=== PATIENT | male | born 1980 | race Caucasian/White ===

== ENCOUNTER 2016-12-08 09:41 | Emergency (ER) | payer MEDICAID ==
[~2016-12-08] VITALS: Ht 182.9 cm; Wt 82.9 kg
[2016-12-08 09:46] VITALS: Ht 182.9 cm; Wt 82.9 kg
[2016-12-08] MEDS ORDERED: ONDANSETRON 4 MG INJ IV STA (10:27)
[2016-12-08] MEDS ORDERED: SOD CHLORIDE 0.9% 1,000 ML IV STA (10:27)
[2016-12-08] MEDS ORDERED: morphine 2 MG INJ IV STA (10:27)
[2016-12-08] MEDS ORDERED: ASPIRIN 81 MG TAB PO ONE (10:30)
[2016-12-08 10:47] LABS: ADD SCAN DIFF NO
[2016-12-08] MEDS ORDERED: METF-382 PO (10:48)
[2016-12-08] MEDS ORDERED: LISI10TA2 PO (10:48)
[2016-12-08] MEDS ORDERED: OMEP20CA16 PO (10:49)
[2016-12-08 10:50] LABS: BASOPHILS % 0.4 % (0.0-2.0); EOSINOPHILS # 0.1 10^3/ul (0.0-0.5); EOSINOPHILS % 0.8 % (0.0-7.0); HEMATOCRIT 43.6 % (42.0-52.0); HEMOGLOBIN 14.8 g/dl (14.0-18.0); LYMPHOCYTES # 2.3 10^3/ul (0.8-2.9); LYMPHOCYTES % 24.5 % (15.0-51.0); MEAN CORPUSCULAR HEMOGLOBIN 28.7 pg (29.0-33.0); MEAN CORPUSCULAR HGB CONC 33.9 g/dl (32.0-37.0); MEAN CORPUSCULAR VOLUME 84.5 fl (82.0-101.0); MONOCYTE # 0.6 10^3/ul (0.3-0.9); NEUTROPHIL # 6.3 10^3/ul (1.6-7.5); NEUTROPHILS % 67.5 % (39.0-77.0); PLATELET COUNT 174 10^3/UL (140-415); RED BLOOD COUNT 5.16 10^6/ul (4.70-6.10); RED CELL DISTRIBUTION WIDTH 11.9 % (11.5-14.5); WHITE BLOOD COUNT 9.3 10^3/ul (4.8-10.8)
--- NOTE | 2016-12-08 10:50 | RADRPT ---
PROCEDURE: Chest x-ray CLINICAL INDICATION: Abdominal pain TECHNIQUE: Chest single view COMPARISON: None FINDINGS: The heart is normal in size. The pulmonary vessels are normal in caliber. The lungs are clear. Th e costophrenic angles are sharp. The visualized bony thorax is unremarkable. IMPRESSION: No acute cardiopulmonary disease. RPTAT: HH .Jasiel Tellez MD, Date Time Electronically viewed and signed by .Jasiel Tellez MD, MD on 12/08/2016 10:50 .W/
[2016-12-08 11:14] LABS: INR 0.94; PROTIME 12.6 Sec (12.2-14.2)
[2016-12-08 11:15] LABS: PARTIAL THROMBOPLASTIN TIME 26.4 Sec (25.0-35.0)
[2016-12-08 11:20] LABS: ALBUMIN 4.2 g/dl (3.3-4.9)
[2016-12-08 11:21] LABS: POTASSIUM 3.9 mmol/L (3.5-5.1)
[2016-12-08 11:23] LABS: CREATININE 0.95 mg/dl (0.61-1.24)
[2016-12-08 11:24] LABS: ALBUMIN/GLOBULIN RATIO 1.4; BILIRUBIN,INDIRECT 0.5 mg/dl (0-1.1); BILIRUBIN,TOTAL 0.5 mg/dl (0.2-1.3); CALCIUM 9.7 mg/dl (8.4-10.2); TOTAL PROTEIN 7.2 g/dl (6.1-8.1)
[2016-12-08 11:40] LABS: ADD UMIC NO; URINE BILIRUBIN (Dip) NEGATIVE (NEGATIVE); URINE BLOOD (Dip) NEGATIVE (NEGATIVE); URINE COLOR LT. YELLOW (YELLOW); URINE GLUCOSE (Dip) >=1000 % (NEGATIVE); URINE KETONES (Dip) NEGATIVE (NEGATIVE); URINE LEUKOCYTE ESTERASE (Dip) NEGATIVE (NEGATIVE); URINE NITRITE (Dip) NEGATIVE (NEGATIVE); URINE TOTAL PROTEIN (Dip) NEGATIVE (NEGATIVE); URINE UROBILINOGEN (Dip) 0.2 E.U./dL (0.1-1.0)
[2016-12-08] MEDS ORDERED: SOD CHLORIDE 0.9% 100 ML ONE (12:10)
[2016-12-08] MEDS ORDERED: IOHEXOL 100 ML ONE (12:10)
--- NOTE | 2016-12-08 13:01 | RADRPT ---
PROCEDURE: CTA Chest and pulmonary angiogram. CLINICAL INDICATION: Chest pain, shortness of breath, tachycardia, rule out pulmonary embolism TECHNIQUE: CT scan of the chest and CT pulmonary angiogram was performed on a multidetector high-r esolution CT scanner. High-resolution thin slice coronal and sagittal imaging was obtained from the axial source images. The patient was examined following the intravenous administration of 90 cc of Omnipaque-350. The images were reviewed on a PACS workstation. The total exam CTDI equals 10.33 mGy , and the total exam DLP equals 408.19 mGy-cm. One or more of the following dose reduction techniques were used: - Automated exposure control. - Adjustment of the mA and/or kV according to patient size. - Use of iterative reconstruction technique. COMPARISON: Chest x-ray of 12/08/2016 FINDINGS: There is beam-hardening artifact arising from dense contrast in the superior vena cava projected ove r right upper lobe pulmonary arteries limiting evaluation of these arteries. No definite filling de fects suggestive of emboli are seen in main, lobar or segmental pulmonary arteries. There is no gladys dence of thoracic aortic dissection or aneurysm. No enlarged mediastinal lymph nodes are seen. No focal pulmonary infiltrate is seen. Minimal linear atelectasis/fibrosis at left lung base posteriorl y. No pleural effusion is seen. There is a nonspecific approximate 2.4 x 1.3 cm oval area of decreas ed density with peripheral calcification in the anterior left upper spleen which could be secondary to a complex cyst with peripheral calcification. IMPRESSION: No definite evidence of pulmonary emboli. Nonspecific approximate 2.4 x 1.3 cm oval area of decrease d density with peripheral calcification in the anterior left upper spleen which could be secondary t o a complex cyst with peripheral calcification. Please see above. RPTAT: HJES .Jung Leary MD, Date Time Electronically viewed and signed by .Jung Leary MD, MD on 12/08/2016 13:01 .S/
[2016-12-08] MEDS ORDERED: ALPRAZOLAM 0.25 MG TAB PO ONE (15:00)
[2016-12-08] MEDS ORDERED: RANI150T9 PO (15:50)
--- NOTE | 2016-12-08 15:59 | ERD ---
ER Documentation Chief Complaint Date/Time DATE: 12/08/16 TIME: 15:54 Chief Complaint Intermittent non-radiating CP and SOB since yesterday morning, HPI This 36-year-old male comes with chest pain that occurs on and off on the right side of his chest that began this morning. He believes he may have been short of breath 2. States that he did not sleep all night it may feel stressed out. [place] nausea vomiting. Patient does have diabetes is that his sugars are controlled. ROS All systems reviewed and are negative except as per history of present illness. Medications Home Meds Active Scripts Ranitidine Hcl* (Zantac*) 150 Mg Tablet, 150 MG PO BID Y for EPIGASTRIC PAIN, # 30 TAB Prov:INGRIDVALERIO DO 12/08/16 Reported Medications Omeprazole* (Omeprazole*) 20 Mg Capsule.dr, 20 MG PO DAILY, #30 CAP 12/08/16 Lisinopril* (Lisinopril*) 10 Mg Tablet, 10 MG PO BID, #30 TAB 12/08/16 Metformin Hcl* (Metformin Hcl*) 500 Mg Tablet, 500 MG PO WITH BREAKFAST DINNE, # 30 TAB 12/08/16 Allergies Allergies: Coded Allergies: No Known Allergy (Unverified , 12/08/16) PMhx/Soc Hx Cardiac Disorders: Yes (htn) Hx Miscellaneous Medical Probl: Yes (dm) Hx Alcohol Use: No Hx Substance Use: No Hx Tobacco Use: No Smoking Status: Former smoker Physical Exam Vitals Vital Signs Date Time Temp Pulse Resp B/P Pulse Ox O2 Delivery O2 Flow Rate FiO2 12/08/16 15:30 97.6 87 14 118/82 100 Room Air 12/08/16 14:56 106 18 120/84 99 Room Air 12/08/16 12:11 72 18 142/95 100 Room Air 12/08/16 09:46 97.6 100 20 155/87 100 Physical Exam Const: [] No distress Head: Atraumatic Eyes: Normal Conjunctiva ENT: Normal External Ears, Nose and Mouth. Neck: Full range of motion..~ No meningismus. Resp: Clear to auscultation bilaterally Cardio: Regular rate and rhythm, no murmurs Abd: Soft, non tender, non distended. Normal bowel sounds Skin: No petechiae or rashes Back: No midline or flank tenderness Ext: No cyanosis, or edema Neur: Awake and alert and oriented 3, no focal deficits Psych: Normal Mood and Affect Result Diagram: 12/08/16 1030 12/08/16 1030 Results 24 hrs Laboratory Tests Test 12/08/16 10:30 12/08/16 11:28 Activated Partial Thromboplast Time 26.4Sec Alanine Aminotransferase (ALT/SGPT) 46IU/L Albumin 4.2g/dl Albumin/Globulin Ratio 1.40 Alkaline Phosphatase 95IU/L Anion Gap 17 Aspartate Amino Transf (AST/SGOT) 34IU/L Basophils # 0.010^3/ul Basophils % 0.4% Blood Urea Nitrogen 12mg/dl Calcium Level 9.7mg/dl Carbon Dioxide Level 27mmol/L Chloride Level 100mmol/L Creatinine 0.95mg/dl Direct Bilirubin 0.00mg/dl Eosinophils # 0.110^3/ul Eosinophils % 0.8% Globulin 3.00g/dl Glucose Level 300mg/dl Hematocrit 43.6% Hemoglobin 14.8g/dl INR International Normalized Ratio 0.94 Indirect Bilirubin 0.5mg/dl Lipase 141U/L Lymphocytes # 2.310^3/ul Lymphocytes % 24.5% Mean Corpuscular Hemoglobin 28.7pg Mean Corpuscular Hemoglobin Concent 33.9g/dl Mean Corpuscular Volume 84.5fl Mean Platelet Volume 13.0fl Monocytes # 0.610^3/ul Monocytes % 6.0% Neutrophils # 6.310^3/ul Neutrophils % 67.5% Nucleated Red Blood Cells # 0.010^3/ul Nucleated Red Blood Cells % 0.0/100WBC Platelet Count 39305^3/UL Potassium Level 3.9mmol/L Prothrombin Time 12.6Sec Prothrombin Time Ratio 1.0 Red Blood Count 5.1610^6/ul Red Cell Distribution Width 11.9% Sodium Level 140mmol/L Total Bilirubin 0.5mg/dl Total Protein 7.2g/dl White Blood Count 9.310^3/ul Urine Bilirubin NEGATIVE Urine Clarity CLEAR Urine Color LT. YELLOW Urine Glucose >=1000% Urine Hemoglobin NEGATIVE Urine Ketones NEGATIVE Urine Leukocyte Esterase NEGATIVE Urine Nitrite NEGATIVE Urine Specific [place] <=1.005 Urine Total Protein NEGATIVE Urine Urobilinogen 0.2 E.U./dL Urine pH 6.5 Current Medications Medications (Trade) Dose Ordered Sig/Tulio Route PRN Reason Start Time Stop Time Status Last Admin Dose Admin Sodium Chloride (NS) 1,000 ml @ 1,000 mls/hr Q1H STAT IV 12/08/16 10:27 12/08/16 11:26 DC 12/08/16 11:17 Morphine Sulfate (morphine) 2 mg ONCE STAT IV 12/08/16 10:27 12/08/16 10:29 DC 12/08/16 11:17 Ondansetron HCl (Zofran Inj) 4 mg ONCE STAT IV 12/08/16 10:27 12/08/16 10:29 DC 12/08/16 11:17 Aspirin (Aspirin) 324 mg ONCE ONCE PO 12/08/16 10:30 12/08/16 10:31 DC 12/08/16 11:17 IV Flush 10 ml 10 ml STK-MED ONCE .ROUTE 12/08/16 12:10 12/08/16 12:11 DC 12/08/16 12:34 Sodium Chloride 100 ml @ ud STK-MED ONCE .ROUTE 12/08/16 12:10 12/08/16 12:11 DC 12/08/16 12:34 Iohexol (Omnipaque) 100 ml @ ud STK-MED ONCE .ROUTE 12/08/16 12:10 12/08/16 12:11 DC 12/08/16 12:35 Alprazolam (Xanax) 0.5 mg ONCE ONCE PO 12/08/16 15:00 12/08/16 15:01 DC 12/08/16 14:55 Procedures/MDM Atypical chest pain in patient with diabetes and hypertension. Patient has no ischemic changes on EKG and negative troponin in the ER after more than 3 hours since the onset of his chest pain. Was given IV fluid for his elevated blood glucose. He remains stable on the monitor. He was given a Xanax tablet after which his mild tachycardia resolved stated that he felt better. This patient is virtually asymptomatic in the ER going to discharge him with strict return precautions to return to the ER for any chest pain. A Milla discharging him with instructions to obtain an echocardiogram appointment by calling his primary care physician tomorrow. Also recommending cardiology follow-up. Low suspicion for acute coronary syndrome on this visit. EKG interpretation: Sinus tachycardia rate of 103, right axis deviation, no ST or T-wave changes concerning for acute ischemia. furnace filler interpretation: Initial mild sinus tachycardia followed by normal sinus rhythm after administration of Xanax. Chest x-ray interpretation: No acute process, no widened mediastinum, no pneumothorax, no pulmonary edema, no infiltrates, no fractures Departure Diagnosis: Primary Impression: Chest pain Additional Impressions: Splenic cyst Hyperglycemia Condition: Stable Patient Instructions: Chest Pain, Uncertain Cause Referrals: SLAVA GOODWIN (PCP) Additional Instructions: Call your primary care doctor TOMORROW for an appointment during the next 1-2 days. Obtain a referral for an ECHOCARDIOGRAM and Cardiology appointment. See the doctor sooner or return here if your condition worsens before your appointment time. VALERIO QUINTERO DO Dec 08, 2016 15:59
[2016-12-08 16:00] VITALS: BP 129/65; PULSE 98; RESP 19; TEMP 98.6
[2016-12-09] MEDS ORDERED: IBUP-1542 PO (11:03)
== END 2016-12-08 16:01 | disposition home or self-care (01) ==
LOC: E/R 09:41
DX: R07.9 Chest pain, unspecified (principal); D73.4 Cyst of spleen; E11.65 Type 2 diabetes mellitus with hyperglycemia; I10 Essential (primary) hypertension; Z87.891 Personal history of nicotine dependence; Z79.84 Long term (current) use of oral hypoglycemic drugs
CPT/HCPCS: 36415; 71010; 71275; 80053; 81003; 83690; 85025; 85610; 85730; 93005; 96374; 96375; J2270; J2405; J7030; Q9967; Z7502; Z7610

== ENCOUNTER 2016-12-09 09:29 | Emergency (ER) | payer MEDICAID ==
[~2016-12-09] VITALS: Wt 81.0 kg
[~2016-12-09 09:29] MED LIST: LISI10TA2 PO; METF-382 PO; OMEP20CA16 PO; RANI150T9 PO
[2016-12-09] MEDS ORDERED: IBUPROFEN 800 MG TAB PO ONE (10:30)
--- NOTE | 2016-12-09 10:36 | RADRPT ---
PROCEDURE: XR Chest. CLINICAL INDICATION: chest pain TECHNIQUE: Single frontal view of the chest was obtained COMPARISON: 12/08/16 FINDINGS: The heart and mediastinum are within normal limits. The lungs are clear. There is no pleural effusion or pneumothorax. RPTAT: AA IMPRESSION: No acute disease. .Hua Maynard MD, MD Date Time Electronically viewed and signed by .Hua Maynard MD, on 12/09/2016 10:36 .S/
[2016-12-09] MEDS ORDERED: IBUP-1542 PO (11:03)
[2016-12-09 11:22] VITALS: BP 142/95; PULSE 72; RESP 18
--- NOTE | 2016-12-09 13:24 | ERD ---
ER Documentation Chief Complaint Date/Time DATE: 12/09/16 TIME: 13:22 Chief Complaint CHEST PAIN SINCE THIS MORNING. SEEN YESTERDAY FOR SAME. NO N/V. HPI Patient is a 36-year-old male with hypertension and diabetes who presents with chest pain. He had a full workup yesterday including laboratory studies, chest x-ray, and CT scan of the chest. However today he was continuing to have chest pain with inspiration so he came back to the emergency department. However at this point he denies chest pain. He has no treatment for this pain as of yet. His primary doctor is Dr. Palacio. ROS All systems reviewed and are negative except as per history of present illness. Medications Home Meds Active Scripts Ibuprofen* (Motrin*) 600 Mg Tab, 600 MG PO Q6H Y for PAIN AND OR ELEVATED TEMP, #30 TAB Prov:SHANTA WEBB MD 12/09/16 Ranitidine Hcl* (Zantac*) 150 Mg Tablet, 150 MG PO BID Y for EPIGASTRIC PAIN, # 30 TAB Prov:VALERIO QUINTERO DO 12/08/16 Reported Medications Omeprazole* (Omeprazole*) 20 Mg Capsule., 20 MG PO DAILY, #30 CAP 12/08/16 Lisinopril* (Lisinopril*) 10 Mg Tablet, 10 MG PO BID, #30 TAB 12/08/16 Metformin Hcl* (Metformin Hcl*) 500 Mg Tablet, 500 MG PO WITH BREAKFAST DINNE, # 30 TAB 12/08/16 Allergies Allergies: Coded Allergies: No Known Allergy (Unverified , 12/08/16) PMhx/Soc Medical and Surgical Hx: pt denies Surgical Hx Hx Cardiac Disorders: Yes (htn) Hx Miscellaneous Medical Probl: Yes (dm) Hx Alcohol Use: No Hx Substance Use: No Hx Tobacco Use: No Smoking Status: Current some day smoker FmHx Family History: No coronary disease Physical Exam Vitals Vital Signs Date Time Temp Pulse Resp B/P Pulse Ox O2 Delivery O2 Flow Rate FiO2 12/09/16 11:22 72 18 142/95 98 Room Air 12/09/16 09:35 98.5 91 20 165/98 100 Physical Exam Const: No acute distress Head: Atraumatic Eyes: Normal Conjunctiva ENT: Normal External Ears, Nose and Mouth. Neck: Full range of motion..~ No meningismus. Resp: Clear to auscultation bilaterally Cardio: Regular rate and rhythm, no murmurs Abd: Soft, non tender, non distended. Normal bowel sounds Skin: No petechiae or rashes Back: No midline or flank tenderness Ext: No cyanosis, or edema Neur: Awake and alert Psych: Normal Mood and Affect Results 24 hrs Current Medications Medications (Trade) Dose Ordered Sig/Tulio Route PRN Reason Start Time Stop Time Status Last Admin Dose Admin Ibuprofen (Motrin) 800 mg ONCE ONCE PO 12/09/16 10:30 12/09/16 10:31 DC 12/09/16 10:22 Procedures/MDM EKG read by me: Rate/Rhythm: Regular rate and rhythm at a normal rate Intervals: Normal Impression: No evidence of ischemia or arrhythmia Chest x-ray negative per radiology. Patient is a 36-year-old male with hypertension and diabetes who presents with chest pain. He had a full workup yesterday including laboratory studies and CT scan of the chest which was negative. Today his EKG and chest x-ray were negative. At this point I doubt acute coronary syndrome, pneumonia, pneumothorax, pulmonary embolism, or aortic dissection. I do not think that he requires admission to the hospital at this time but he does need close follow- up with his primary doctor within 24-48 hours for reevaluation. He may benefit from an outpatient stress test. He could return for any worsening symptoms. Departure Diagnosis: Primary Impression: Chest pain Chest pain type: unspecified Qualified Code: R07.9 - Chest pain, unspecified type Condition: Fair Patient Instructions: Chest Pain, Uncertain Cause Additional Instructions: Call your primary care doctor TOMORROW for an appointment during the next 1-2 days.See the doctor sooner or return here if your condition worsens before your appointment time. SHANTA WEBB MD Dec 09, 2016 13:24
== END 2016-12-09 11:23 | disposition home or self-care (01) ==
LOC: E/R 09:29
DX: R07.9 Chest pain, unspecified (principal); I10 Essential (primary) hypertension; E11.9 Type 2 diabetes mellitus without complications; F17.210 Nicotine dependence, cigarettes, uncomplicated; Z79.84 Long term (current) use of oral hypoglycemic drugs
CPT/HCPCS: 71010; 93005; Z7502; Z7610

== ENCOUNTER 2017-05-03 20:16 | Emergency (ER) | payer MEDICAID, OTHER ==
[~2017-05-03] VITALS: Ht 182.9 cm; Wt 85.0 kg
[~2017-05-03 20:16] MED LIST changes: +IBUP-1542 PO; -METF-382 PO; +METF500T4 PO
[2017-05-03 20:25] VITALS: Ht 182.9 cm; Wt 85.0 kg
[2017-05-03] MEDS ORDERED: LIDOCAINE/MYLANTA 40 ML BTL PO ONE (21:30)
[2017-05-03] MEDS ORDERED: SOD CHLORIDE 0.9% 1,000 ML IV ONE (21:30)
[2017-05-03] MEDS ORDERED: ASPIRIN 81 MG TAB PO ONE (21:30)
[2017-05-03] MEDS ORDERED: PANTOPRAZOLE 40 MG INJ IV ONE (21:30)
[2017-05-03 21:38] LABS: ADD UMIC NO; UR ASCORBIC ACID NEGATIVE (NEGATIVE); UR BILIRUBIN (Dip) NEGATIVE (NEGATIVE); UR BLOOD (Dip) NEGATIVE (NEGATIVE); UR CLARITY CLEAR (CLEAR); UR COLOR YELLOW (YELLOW); UR GLUCOSE (Dip) 3+ mg/dL (NEGATIVE); UR KETONES (Dip) TRACE mg/dL (NEGATIVE); UR LEUKOCYTE ESTERASE (Dip) NEGATIVE Leu/ul (NEGATIVE); UR NITRITE (Dip) NEGATIVE (NEGATIVE); UR TOTAL PROTEIN (Dip) NEGATIVE (NEGATIVE); UR UROBILINOGEN (Dip) NEGATIVE (NEGATIVE)
[2017-05-03 21:49] LABS: WHITE BLOOD COUNT 10.7 10^3/ul (4.8-10.8)
[2017-05-03 21:50] LABS: BASOPHILS % 0.4 % (0.0-2.0); EOSINOPHILS # 0.1 10^3/ul (0.0-0.5); EOSINOPHILS % 1.2 % (0.0-7.0); HEMATOCRIT 41.9 % (42.0-52.0); HEMOGLOBIN 14.1 g/dl (14.0-18.0); LYMPHOCYTES # 2.9 10^3/ul (0.8-2.9); LYMPHOCYTES % 27.2 % (15.0-51.0); MEAN CORPUSCULAR HGB CONC 33.7 g/dl (32.0-37.0); MEAN PLATELET VOLUME 12.7 fl (7.4-10.4); MONOCYTE # 0.8 10^3/ul (0.3-0.9); MONOCYTES % 7.3 % (0.0-11.0); NEUTROPHIL # 6.8 10^3/ul (1.6-7.5); NEUTROPHILS % 63.2 % (39.0-77.0); PLATELET COUNT 167 10^3/UL (140-415); RED BLOOD COUNT 4.87 10^6/ul (4.70-6.10); RED CELL DISTRIBUTION WIDTH 12.2 % (11.5-14.5)
--- NOTE | 2017-05-03 21:51 | ERD ---
ER Documentation Chief Complaint Date/Time DATE: 05/03/17 TIME: 21:48 Chief Complaint bilateral anterior chest wall pain x 2 days. Worse with deep breaths. HPI This 37-year-old diabetic male patient presented to emergency department with chest pain radiating to his left lateral chest and back, pain with breathing, patient reports that he has been belching, feels gassy, patient states he has tried Tums and Gas-X with intermittent relief of symptoms. Patient reports history of heartburn, hypertension, dependent diabetes mellitus. Patient denies palpitations, shortness of breath, dizziness. ROS All systems reviewed and are negative except as per history of present illness. Medications Home Meds Active Scripts Ranitidine Hcl* (Zantac*) 150 Mg Tablet, 150 MG PO BID Y for EPIGASTRIC PAIN, # 30 TAB Prov:JENNIFER,MARTHA 05/04/17 Ibuprofen* (Motrin*) 400 Mg Tab, 400 MG PO Q6, #30 TAB Prov:JENNIFER,MARTHA 05/04/17 Ibuprofen* (Motrin*) 600 Mg Tab, 600 MG PO Q6H Y for PAIN AND OR ELEVATED TEMP, #30 TAB Prov:SHANTA WEBB MD 12/09/16 Ranitidine Hcl* (Zantac*) 150 Mg Tablet, 150 MG PO BID Y for EPIGASTRIC PAIN, # 30 TAB Prov:VALERIO QUINTERO DO 12/08/16 Reported Medications Omeprazole* (Omeprazole*) 20 Mg Capsule.dr, 20 MG PO DAILY, #30 CAP 12/08/16 Lisinopril* (Lisinopril*) 10 Mg Tablet, 10 MG PO BID, #30 TAB 12/08/16 Metformin Hcl* (Metformin Hcl*) 500 Mg Tablet, 500 MG PO WITH BREAKFAST DINNE, # 30 TAB 12/08/16 Allergies Allergies: Coded Allergies: No Known Allergy (Unverified , 05/03/17) PMhx/Soc Medical and Surgical Hx: pt denies Surgical Hx Hx Cardiac Disorders: Yes (htn) Hx Miscellaneous Medical Probl: Yes (dm) Hx Alcohol Use: No Hx Substance Use: No Hx Tobacco Use: No Smoking Status: Never smoker Physical Exam Vitals Vital Signs Date Time Temp Pulse Resp B/P Pulse Ox O2 Delivery O2 Flow Rate FiO2 05/03/17 20:25 98.3 81 18 163/90 85 Vitals stable, triage notes reviewed Physical Exam Const: Well-appearing well-hydrated no acute distress Head: Atraumatic Eyes: Normal Conjunctiva PERRLA, EOMI ENT: Normal External Ears, Nose and Mouth mucous membranes moist. Neck: Full range of motion. No JVD Resp: Clear to auscultation bilaterally no rales wheezes or rhonchi Cardio: Regular rate and rhythm, no murmurs S1-S2 no S3-S4 Abd: Abdomen soft distended tympanic to percussion, nontender, negative Shields's point tenderness, no rebound tenderness, no McBurney's point tenderness Skin: Back: Ext: Neur: Awake and alert Psych: Normal Mood and Affect Result Diagram: 05/03/17213605/03/172136 Results 24 hrs Laboratory Tests Test 05/03/17 21:31 05/03/17 21:37 Urine Color YELLOW Urine Clarity CLEAR Urine pH 5.0 Urine Specific [place] 1.020 Urine Ketones TRACEmg/dL Urine Nitrite NEGATIVEmg/dL Urine Bilirubin NEGATIVEmg/dL Urine Urobilinogen NEGATIVEmg/dL Urine Leukocyte Esterase NEGATIVELeu/ul Urine Hemoglobin NEGATIVEmg/dL Urine Glucose 3+mg/dL Urine Total Protein NEGATIVEmg/dl White Blood Count 10.710^3/ul Red Blood Count 4.8710^6/ul Hemoglobin 14.1g/dl Hematocrit 41.9% Mean Corpuscular Volume 86.0fl Mean Corpuscular Hemoglobin 29.0pg Mean Corpuscular Hemoglobin Concent 33.7g/dl Red Cell Distribution Width 12.2% Platelet Count 59668^3/UL Mean Platelet Volume 12.7fl Neutrophils % 63.2% Lymphocytes % 27.2% Monocytes % 7.3% Eosinophils % 1.2% Basophils % 0.4% Nucleated Red Blood Cells % 0.0/100WBC Neutrophils # 6.810^3/ul Lymphocytes # 2.910^3/ul Monocytes # 0.810^3/ul Eosinophils # 0.110^3/ul Basophils # 0.010^3/ul Nucleated Red Blood Cells # 0.010^3/ul Sodium Level 146mmol/L Potassium Level 3.5mmol/L Chloride Level 101mmol/L Carbon Dioxide Level 30mmol/L Anion Gap 19 Blood Urea Nitrogen 11mg/dl Creatinine 0.99mg/dl Glucose Level 146mg/dl Calcium Level 9.5mg/dl Total Bilirubin 0.3mg/dl Direct Bilirubin 0.00mg/dl Indirect Bilirubin 0.3mg/dl Aspartate Amino Transf (AST/SGOT) 21IU/L Alanine Aminotransferase (ALT/SGPT) 40IU/L Alkaline Phosphatase 88IU/L Troponin I < 0.012ng/ml Total Protein 7.2g/dl Albumin 4.2g/dl Globulin 3.00g/dl Albumin/Globulin Ratio 1.40 Lipase 126U/L Current Medications Medications (Trade) Dose Ordered Sig/Tulio Route PRN Reason Start Time Stop Time Status Last Admin Dose Admin Miscellaneous Medication 40 ml 40 ml ONCE ONCE PO 05/03/17 21:30 05/03/17 21:31 DC 05/03/17 21:26 Sodium Chloride (NS) 1,000 ml @ 1,000 mls/hr Q1H ONCE IV 05/03/17 21:30 05/03/17 22:29 DC 05/03/17 21:26 Pantoprazole (Protonix Iv) 40 mg ONCE ONCE IV 05/03/17 21:30 05/03/17 21:31 DC 05/03/17 21:26 Aspirin (Aspirin) 324 mg ONCE ONCE PO 05/03/17 21:30 05/03/17 21:31 DC 05/03/17 21:26 Interpretation text CBC shows no evidence of hemorrhage or infection Chemistry shows no evidence of significant electrolyte abnormalities or renal insufficiency Liver function tests shows no evidence of acute biliary or hepatic dysfunction . Procedures/MDM PROCEDURE: XR Chest. CLINICAL INDICATION: Chest pain. TECHNIQUE: PA and Lateral views of the chest were obtained. COMPARISON: 12/09/2016. FINDINGS: The cardiomediastinal silhouette is within normal limits. The lungs are clear. No signs of pleural fluid or pneumothorax are seen. The osseous structures and soft tissues are unremarkable. IMPRESSION: No evidence for active cardiopulmonary disease. RPTAT: [facility] Physician Davi Date Time Electronically viewed and signed by Physician Davi on 05/03/2017 23:51 This pleasant 37-year-old diabetic male patient presents to emergency department for a 3 day history of pain with deep breathing, abdominal distention , gas, pain radiates to his back and shoulder. Patient has tried over-the- counter Tums and Gas-X with intermittent relief of symptoms. Denies any injury , low suspicion for pneumonia, ascending aortic aneurysm, pancreatitis, acute coronary syndromes. ECG was done regardless with normal sinus rhythm and ventricular rate of 81 bpm, chest x-ray done to rule out any pneumonia or cardiomegaly, impression there is no evidence of active cardiopulmonary disease. Laboratory testing unremarkable, no evidence of anemia or acute infection, electrolyte imbalance, pancreatitis or hepatitis. Patient treated in emergency department with a GI cocktail, IV Protonix, normal saline, and baby aspirin chewed. Patient reports improvement of symptoms after interventions will be discharged home on Motrin as needed chest pain, Zantac, continue Tums as needed, follow-up with primary care physician for full evaluation of suspected pleurisy and gastritis. Patient teaching regarding low gas producing diet. Departure Diagnosis: Primary Impression: Gastritis Gastritis type: unspecified gastritis Chronicity: unspecified Gastritis bleeding: without bleeding Qualified Code: K29.70 - Gastritis without bleeding, unspecified chronicity, unspecified gastritis type Additional Impression: Pleurisy Condition: Fair Patient Instructions: Diet, Low Gas, Pleurisy Referrals: [facility] Additional Instructions: Thank you for for coming to [facility] for your care today. Please ask your nurse or provider if you have questions about your care today and do not leave until all your questions have been answered. Please use any medications given as directed and follow-up with your doctor (or the doctor you were referred to) in the next 2-3 days. If you do not have a primary care doctor you may follow up at the [facility] (listed below). You may also use motrin and tylenol as needed for fever and/or pain unless instructed otherwise by your provider or nurse. Indications for more urgent follow-up have been discussed, but you may return to the Emergency Department at ANY time for any worrisome or worsening symptoms. If you have abdominal pain, please know that no test or exam you received is perfect and you should follow up within 8 hours for continued pain. If you had any imaging studies today, such as an X-Ray or CT Scan, these studies will be reviewed later by a radiologist. You will be called if there are important findings that were not identified today, so make sure the contact information you provided at registration is correct. If you received any narcotic pain control medicine today, such as Vicodin, Morphine or Dilaudid, your coordination and judgment may be affected for a number of hours. Please do not drive or operate heavy machinery, and you may want someone to assist you at home. If you were given a prescription for narcotic medication, be aware that it is very addictive- use sparingly and only if necessary. MARTHA RODRIGUEZ May 03, 2017 21:51
[2017-05-03 22:08] LABS: ALANINE AMINOTRANSFERASE 40 IU/L (13-69); ALBUMIN 4.2 g/dl (3.3-4.9); ALKALINE PHOSPHATASE 88 IU/L (42-121); ANION GAP 19 (8-16); ASPARTATE AMINO TRANSFERASE 21 IU/L (15-46); BILIRUBIN,INDIRECT 0.3 mg/dl (0-1.1); BILIRUBIN,TOTAL 0.3 mg/dl (0.2-1.3); BLOOD UREA NITROGEN 11 mg/dl (7-20); CALCIUM 9.5 mg/dl (8.4-10.2); CARBON DIOXIDE 30 mmol/L (21-31); CHLORIDE 101 mmol/L (97-110); CREATININE 0.99 mg/dl (0.61-1.24); GLUCOSE 146 mg/dl (70-220); POTASSIUM 3.5 mmol/L (3.5-5.1); SODIUM 146 mmol/L (135-144); TOTAL PROTEIN 7.2 g/dl (6.1-8.1)
[2017-05-03 22:22] LABS: TROPONIN-I < 0.012 ng/ml (0.00-0.12)
--- NOTE | 2017-05-03 23:51 | RADRPT ---
PROCEDURE: XR Chest. CLINICAL INDICATION: Chest pain. TECHNIQUE: PA and Lateral views of the chest were obtained. COMPARISON: 12/09/2016. FINDINGS: The cardiomediastinal silhouette is within normal limits. The lungs are clear. No signs of pleural f luid or pneumothorax are seen. The osseous structures and soft tissues are unremarkable. IMPRESSION: No evidence for active cardiopulmonary disease. RPTAT: [facility] Physician Davi Date Time Electronically viewed and signed by Michael Gomes Physician on 05/03/2017 23:51 RS/
[2017-05-04] MEDS ORDERED: IBUP400T22 PO (01:36)
[2017-05-04] MEDS ORDERED: RANI150T9 PO (01:37)
[2017-05-04 01:54] VITALS: BP 128/88; PULSE 90; RESP 18; TEMP 98.6
== END 2017-05-04 01:59 | disposition home or self-care (01) ==
LOC: FTE 20:16
DX: K29.70 Gastritis, unspecified, without bleeding (principal); R09.1 Pleurisy; I10 Essential (primary) hypertension; E11.9 Type 2 diabetes mellitus without complications; Z79.84 Long term (current) use of oral hypoglycemic drugs
CPT/HCPCS: 36415; 71020; 80053; 81003; 83690; 84484; 85025; 93005; 96374; C9113; J7030; Z7502; Z7610

== ENCOUNTER 2017-08-13 20:22 | Emergency (ER) | payer OTHER ==
[~2017-08-13] VITALS: Ht 170.2 cm; Wt 81.6 kg
[~2017-08-13 20:22] MED LIST changes: +IBUP400T22 PO
[2017-08-13 20:35] VITALS: Ht 170.2 cm; Wt 81.6 kg
[2017-08-13] MEDS ORDERED: KETOROLAC 30 MG INJ IV STA (22:23)
[2017-08-13] MEDS ORDERED: ONDANSETRON 4 MG INJ IV STA (22:23)
[2017-08-13] MEDS ORDERED: SOD CHLORIDE 0.9% 1,000 ML IV STA (22:23)
--- NOTE | 2017-08-13 23:23 | RADRPT ---
PROCEDURE: CT Abdomen and pelvis without contrast. CLINICAL INDICATION: Abdominal pain. TECHNIQUE: CT scan of the abdomen and pelvis was performed on a multi-detector high-resolution CT scanner. Contiguous axial images were obtained from the lung bases to the ischial tuberosities wit hout intravenous contrast. Coronal and sagittal reformatted images were also obtained. Images were reviewed on the PACS workstation. One or more of the following dose reduction techniques were used: - Automated exposure control. - Adjustment of the mA and/or kV according to patient size. - Use of iterative reconstruction technique. Exam CTD/vol = 12.16 mGy. Total exam DLP = 714.20 mGy-cm. COMPARISON: None. FINDINGS: Evaluation of the lung bases demonstrates no pleural or parenchymal disease. Abdomen: The liver is normal in size. There is no focal mass or dilatation of the biliary tree. T he gallbladder is not distended. The spleen is normal in size and contains a complex cystic structu re with peripheral calcifications measuring 2.5 x 1.6 cm. The pancreas and bilateral adrenal glands are within normal limits. Bilateral kidneys are normal in size with no contour deforming mass ident ified. There is no radiopaque renal or ureteral calculus identified. There is no hydronephrosis or hydroureter. There is no retroperitoneal adenopathy. The abdominal aorta is of normal caliber. There is no abnormal bowel wall thickening or distension. There is no bowel obstruction or free air . A normal appendix is identified. There is no diverticulosis or diverticulitis. There is no asci lucina. Pelvis: The bladder is unremarkable. The prostate and seminal vesicles are within normal limits. There is no significant pelvic adenopathy or free fluid. Evaluation of the osseous structures demonstrates no suspicious lytic or blastic lesion. IMPRESSION: Complex splenic cyst with peripheral calcifications, unchanged compared with the prior CT chest done 12/08/2016. Otherwise no acute abnormality identified within the abdomen and pelvis. .Sean Israel MD, MD Date Time Electronically viewed and signed by .Sean Israel MD, MD on 08/13/2017 23:23 .T/
--- NOTE | 2017-08-14 01:24 | RADRPT ---
PROCEDURE: Portable chest x-ray. CLINICAL INDICATION: Pain with breathing. TECHNIQUE: Portable AP view of the chest. COMPARISON: 05/03/2017. FINDINGS: No pulmonary edema or conolidation is identified. The cardiac silhouette is magnified. No pleural effusion is seen. There is no pneumothorax. IMPRESSION: 1. No evidence of acute cardiopulmonary disease. RPTAT: HTAR .Brodie Saldivar MD, MD Date Time Electronically viewed and signed by .Brodie Saldivar MD, on 08/14/2017 01:24 .R/
[2017-08-14] MEDS ORDERED: ACET500C5 PO (01:42)
--- NOTE | 2017-08-14 01:56 | ERD ---
ER Documentation Chief Complaint Chief Complaint LT FLANK PAIN X2 DAYS. +CONSTIPATION HPI 37-year-old male patient with no significant past medical history presents to the ED complaining of left flank pain that started 2 days ago. Reports that it radiates to his abdomen. Patient reports that this has been intermittently going on for the last year. Reports that he has left rib pain with breathing in and out. Reports that he has had pebble like stools. States that he has followed up with a bin filler and was tested positive for H. Pylori. Denies any fever, chills, nausea, vomiting, diarrhea, neck stiffness. ROS All systems reviewed and are negative except as per history of present illness. Medications Home Meds Active Scripts Acetaminophen* (Tylophen*) 500 Mg Capsule, 1 CAP PO Q6H Y for PAIN AND OR ELEVATED TEMP, #20 CAP Prov:JOSE F REYEZ PA-C 08/14/17 Ranitidine Hcl* (Zantac*) 150 Mg Tablet, 150 MG PO BID Y for EPIGASTRIC PAIN, # 30 TAB Prov:JENNIFER,MARTHA 05/04/17 Ibuprofen* (Motrin*) 400 Mg Tab, 400 MG PO Q6, #30 TAB Prov:JENNIFER,MARTHA 05/04/17 Ibuprofen* (Motrin*) 600 Mg Tab, 600 MG PO Q6H Y for PAIN AND OR ELEVATED TEMP, #30 TAB Prov:SHANTA WEBB MD 12/09/16 Ranitidine Hcl* (Zantac*) 150 Mg Tablet, 150 MG PO BID Y for EPIGASTRIC PAIN, # 30 TAB Prov:VALERIO QUINTERO DO 12/08/16 Reported Medications Omeprazole* (Omeprazole*) 20 Mg Capsule.dr, 20 MG PO DAILY, #30 CAP 12/08/16 Lisinopril* (Lisinopril*) 10 Mg Tablet, 10 MG PO BID, #30 TAB 12/08/16 Metformin Hcl* (Metformin Hcl*) 500 Mg Tablet, 500 MG PO WITH BREAKFAST DINNE, # 30 TAB 12/08/16 Allergies Allergies: Coded Allergies: No Known Allergy (Unverified , 08/13/17) PMhx/Soc Medical and Surgical Hx: pt denies Surgical Hx Hx Cardiac Disorders: Yes (htn) Hx Miscellaneous Medical Probl: Yes (dm) Hx Alcohol Use: No Hx Substance Use: No Hx Tobacco Use: No Smoking Status: Never smoker Physical Exam Vitals Vital Signs Date Time Temp Pulse Resp B/P Pulse Ox O2 Delivery O2 Flow Rate FiO2 08/14/17 02:12 97.0 71 18 138/71 97 Room Air 08/13/17 20:35 97.9 107 20 153/88 99 Physical Exam Const: [id number], well-nourished. In no acute distress. Head: Atraumatic, normocephalic Eyes: Normal Conjunctiva without injection. No purulent discharge. ENT: Normal external ear, nose. Moist oropharynx without tonsillar exudates. Non -erythematous pharynx. Uvula midline. No drooling. No trismus. Neck: No cervical midline tenderness. Full range of motion. No meningismus. No cervical lymphadenopathy. No JVD. Resp: Clear to auscultation bilaterally. No wheezing, rhonchi, rales, or crackles. No accessory muscle use. No retractions. Cardio: Regular rate and rhythm. No murmurs, rubs or gallops. Abd: Soft, generalized tenderness to palpation, non distended. Normal bowel sounds. No palpable masses. No rebound tenderness. No guarding. Negative McBurney's point. Negative psoas sign. Negative obturator sign. Skin: No petechiae or rashes Back: No midline tenderness. No CVA tenderness. Ext: No cyanosis, or edema. Neur: Awake and alert. Normal gait. Normal coordination. Psych: Normal Mood and Affect Result Diagram: 08/13/17 2300 08/13/17 2300 Results 24 hrs Laboratory Tests Test 08/13/17 22:54 08/13/17 23:00 08/13/17 23:05 Bedside Glucose 160mg/dL White Blood Count 11.110^3/ul Red Blood Count 5.1410^6/ul Hemoglobin 14.5g/dl Hematocrit 43.6% Mean Corpuscular Volume 84.8fl Mean Corpuscular Hemoglobin 28.2pg Mean Corpuscular Hemoglobin Concent 33.3g/dl Red Cell Distribution Width 11.9% Platelet Count 00445^3/UL Mean Platelet Volume 13.1fl Neutrophils % 60.8% Lymphocytes % 29.9% Monocytes % 6.9% Eosinophils % 1.4% Basophils % 0.5% Nucleated Red Blood Cells % 0.0/100WBC Neutrophils # 6.710^3/ul Lymphocytes # 3.310^3/ul Monocytes # 0.810^3/ul Eosinophils # 0.210^3/ul Basophils # 0.110^3/ul Nucleated Red Blood Cells # 0.010^3/ul Sodium Level 144mmol/L Potassium Level 3.7mmol/L Chloride Level 102mmol/L Carbon Dioxide Level 30mmol/L Anion Gap 16 Blood Urea Nitrogen 14mg/dl Creatinine 0.88mg/dl Glucose Level 163mg/dl Calcium Level 9.8mg/dl Total Bilirubin 0.4mg/dl Direct Bilirubin 0.00mg/dl Indirect Bilirubin 0.4mg/dl Aspartate Amino Transf (AST/SGOT) 23IU/L Alanine Aminotransferase (ALT/SGPT) 34IU/L Alkaline Phosphatase 87IU/L Total Protein 8.2g/dl Albumin 4.4g/dl Globulin 3.80g/dl Albumin/Globulin Ratio 1.15 Lipase 162U/L Urine Color YELLOW Urine Clarity CLEAR Urine pH 7.0 Urine Specific [place] 1.020 Urine Ketones TRACEmg/dL Urine Nitrite NEGATIVEmg/dL Urine Bilirubin NEGATIVEmg/dL Urine Urobilinogen NEGATIVEmg/dL Urine Leukocyte Esterase NEGATIVELeu/ul Urine Hemoglobin NEGATIVEmg/dL Urine Glucose 2+mg/dL Urine Total Protein NEGATIVEmg/dl Current Medications Medications (Trade) Dose Ordered Sig/Tulio Route PRN Reason Start Time Stop Time Status Last Admin Dose Admin Sodium Chloride (NS) 1,000 ml @ 1,000 mls/hr Q1H STAT IV 08/13/17 22:23 08/13/17 23:22 DC 08/13/17 23:20 Ondansetron HCl (Zofran Inj) 4 mg ONCE STAT IV 08/13/17 22:23 08/13/17 22:25 DC 08/13/17 23:15 Ketorolac Tromethamine (Toradol) 30 mg ONCE STAT IV 08/13/17 22:23 08/13/17 22:25 DC 08/13/17 23:15 Procedures/MDM 37-year-old male patient with no significant past medical history presents to the ED complaining of left flank pain and abdominal pain. Patient is afebrile and nontoxic-appearing. Patient has normal vital signs. Patient was further worked up with CBC, CMP, lipase, UA, x-ray, CT of the abdomen and pelvis without contrast. Patient's pain and symptoms have improved after treatment with 1 L of normal saline, 30 mg IV Toradol. CBC: No leukocytosis. No e/o of systemic infection. No e/o anemia. CMP: No e/o severe acidosis, alkalosis, renal failure, diabetic ketoacidosis, liver disease Lipase within normal limits. Urine: No leukocyte esterase, no nitrites, no hematuria, 2+ glucose. PROCEDURE: Portable chest x-ray. CLINICAL INDICATION: Pain with breathing. TECHNIQUE: Portable AP view of the chest. COMPARISON: 05/03/2017. FINDINGS: No pulmonary edema or conolidation is identified. The cardiac silhouette is magnified. No pleural effusion is seen. There is no pneumothorax. IMPRESSION: 1. No evidence of acute cardiopulmonary disease. PROCEDURE: CT Abdomen and pelvis without contrast. CLINICAL INDICATION: Abdominal pain. TECHNIQUE: CT scan of the abdomen and pelvis was performed on a multi- detector high-resolution CT scanner. Contiguous axial images were obtained from the lung bases to the ischial tuberosities without intravenous contrast. Coronal and sagittal reformatted images were also obtained. Images were reviewed on the PACS workstation. One or more of the following dose reduction techniques were used: - Automated exposure control. - Adjustment of the mA and/or kV according to patient size. - Use of iterative reconstruction technique. Exam CTD/vol = 12.16 mGy. Total exam DLP = 714.20 mGy-cm. COMPARISON: None. FINDINGS: Evaluation of the lung bases demonstrates no pleural or parenchymal disease. Abdomen: The liver is normal in size. There is no focal mass or dilatation of the biliary tree. The gallbladder is not distended. The spleen is normal in size and contains a complex cystic structure with peripheral calcifications measuring 2.5 x 1.6 cm. The pancreas and bilateral adrenal glands are within normal limits. Bilateral kidneys are normal in size with no contour deforming mass identified. There is no radiopaque renal or ureteral calculus identified. There is no hydronephrosis or hydroureter. There is no retroperitoneal adenopathy. The abdominal aorta is of normal caliber. There is no abnormal bowel wall thickening or distension. There is no bowel obstruction or free air. A normal appendix is identified. There is no diverticulosis or diverticulitis. There is no ascites. Pelvis: The bladder is unremarkable. The prostate and seminal vesicles are within normal limits. There is no significant pelvic adenopathy or free fluid. Evaluation of the osseous structures demonstrates no suspicious lytic or blastic lesion. IMPRESSION: Complex splenic cyst with peripheral calcifications, unchanged compared with the prior CT chest done 12/08/2016. Otherwise no acute abnormality identified within the abdomen and pelvis. Since patient reports that he had a positive H. pylori breath test, patient should follow up with his bin filler for further evaluation and treatment. Low suspicion for testicular torsion, gastritis, GERD, peptic ulcer disease, cholecystitis, choledocholithiasis, cholangitis, pancreatitis, appendicitis, bowel obstruction, ileus, volvulus, nephrolithiasis, pyelonephritis, hepatitis, perforated viscus, diverticulitis, abdominal hernia, acute abdomen, mesenteric ischemia or other emergent conditions. Discharge medications: Tylenol Follow up with primary care physician in 1-2 days for referral to bin filler. Instructed patient to return to the ED sooner for any worsening symptoms. Patient's questions were answered. Patient understood and agreed with discharge plan. Patient discharged stable. Departure Diagnosis: Primary Impression: Flank pain Additional Impression: Abdominal pain Abdominal location: unspecified location Qualified Code: R10.9 - Abdominal pain, unspecified abdominal location Condition: Stable Patient Instructions: Abdominal Pain, Flank Pain, Uncertain Cause Referrals: [facility] YOU HAVE RECEIVED A MEDICAL SCREENING EXAM AND THE RESULTS INDICATE THAT YOU DO NOT HAVE A CONDITION THAT REQUIRES URGENT TREATMENT IN THE EMERGENCY DEPARTMENT. FURTHER EVALUATION AND TREATMENT OF YOUR CONDITION CAN WAIT UNTIL YOU ARE SEEN IN YOUR DOCTORS OFFICE WITHIN THE NEXT 1-2 DAYS. IT IS YOUR RESPONSIBILITY TO MAKE AN APPOINTMENT FOR FOLOW-UP CARE. IF YOU HAVE A PRIMARY DOCTOR --you should call your primary doctor and schedule an appointment IF YOU DO NOT HAVE A PRIMARY DOCTOR YOU CAN CALL OUR PHYSICIAN REFERRAL HOTLINE AT IF YOU CAN NOT AFFORD TO SEE A PHYSICIAN YOU CAN CHOSE FROM THE FOLLOWING [facility] [address] [facility] [address] [facility] [address] [facility] [address] [facility] [address] [facility]. [facility] [address] [facility]. [facility] YOU HAVE RECEIVED A MEDICAL SCREENING EXAM AND THE RESULTS INDICATE THAT YOU DO NOT HAVE A CONDITION THAT REQUIRES URGENT TREATMENT IN THE EMERGENCY DEPARTMENT. FURTHER EVALUATION AND TREATMENT OF YOUR CONDITION CAN WAIT UNTIL YOU ARE SEEN IN YOUR DOCTORS OFFICE WITHIN THE NEXT 1-2 DAYS. IT IS YOUR RESPONSIBILITY TO MAKE AN APPOINTMENT FOR FOLOW-UP CARE. IF YOU HAVE A PRIMARY DOCTOR --you should call your primary doctor and schedule and appointment IF YOU DO NOT HAVE A PRIMARY DOCTOR YOU CAN CALL OUR PHYSICIAN REFERRAL HOTLINE AT . IF YOU CAN NOT AFFORD TO SEE A PHYSICIAN YOU CAN CHOSE FROM THE FOLLOWING [facility] INSTITUTIONS: [facility] [address] [place] [address] [facility] [address] [place] [address] [facility] + [facility] [address] [place] [address] [facility] URGENT CARE/SPECIALTIES Additional Instructions: FOLLOW UP WITH YOUR PRIMARY CARE PHYSCIAN tomorrow for a referral to see a bin filler for further evaluation and treatment.Return to this facility if you are not improving as expected - vomitng blood, bloody diarrhea, fever, chills, etc. JOSE F REYEZ PA-C Aug 14, 2017 01:56
--- NOTE | 2017-08-14 01:56 | ERD ---
ER Documentation Chief Complaint Chief Complaint LT FLANK PAIN X2 DAYS. +CONSTIPATION HPI 37-year-old male patient with no significant past medical history presents to the ED complaining of left flank pain that started 2 days ago. Reports that it radiates to his abdomen. Patient reports that this has been intermittently going on for the last year. Reports that he has left rib pain with breathing in and out. Reports that he has had pebble like stools. States that he has followed up with a schedule hanger and was tested positive for H. Pylori. Denies any fever, chills, nausea, vomiting, diarrhea, neck stiffness. ROS All systems reviewed and are negative except as per history of present illness. Medications Home Meds Active Scripts Acetaminophen* (Tylophen*) 500 Mg Capsule, 1 CAP PO Q6H Y for PAIN AND OR ELEVATED TEMP, #20 CAP Prov:JOSE F REYEZ PA-C 08/14/17 Ranitidine Hcl* (Zantac*) 150 Mg Tablet, 150 MG PO BID Y for EPIGASTRIC PAIN, # 30 TAB Prov:JENNIFER,MARTHA 05/04/17 Ibuprofen* (Motrin*) 400 Mg Tab, 400 MG PO Q6, #30 TAB Prov:JENNIFER,MARTHA 05/04/17 Ibuprofen* (Motrin*) 600 Mg Tab, 600 MG PO Q6H Y for PAIN AND OR ELEVATED TEMP, #30 TAB Prov:SHANTA WEBB MD 12/09/16 Ranitidine Hcl* (Zantac*) 150 Mg Tablet, 150 MG PO BID Y for EPIGASTRIC PAIN, # 30 TAB Prov:VALERIO QUINTERO DO 12/08/16 Reported Medications Omeprazole* (Omeprazole*) 20 Mg Capsule.dr, 20 MG PO DAILY, #30 CAP 12/08/16 Lisinopril* (Lisinopril*) 10 Mg Tablet, 10 MG PO BID, #30 TAB 12/08/16 Metformin Hcl* (Metformin Hcl*) 500 Mg Tablet, 500 MG PO WITH BREAKFAST DINNE, # 30 TAB 12/08/16 Allergies Allergies: Coded Allergies: No Known Allergy (Unverified , 08/13/17) PMhx/Soc Medical and Surgical Hx: pt denies Surgical Hx Hx Cardiac Disorders: Yes (htn) Hx Miscellaneous Medical Probl: Yes (dm) Hx Alcohol Use: No Hx Substance Use: No Hx Tobacco Use: No Smoking Status: Never smoker Physical Exam Vitals Vital Signs Date Time Temp Pulse Resp B/P Pulse Ox O2 Delivery O2 Flow Rate FiO2 08/14/17 02:12 97.0 71 18 138/71 97 Room Air 08/13/17 20:35 97.9 107 20 153/88 99 Physical Exam Const: [id number], well-nourished. In no acute distress. Head: Atraumatic, normocephalic Eyes: Normal Conjunctiva without injection. No purulent discharge. ENT: Normal external ear, nose. Moist oropharynx without tonsillar exudates. Non -erythematous pharynx. Uvula midline. No drooling. No trismus. Neck: No cervical midline tenderness. Full range of motion. No meningismus. No cervical lymphadenopathy. No JVD. Resp: Clear to auscultation bilaterally. No wheezing, rhonchi, rales, or crackles. No accessory muscle use. No retractions. Cardio: Regular rate and rhythm. No murmurs, rubs or gallops. Abd: Soft, generalized tenderness to palpation, non distended. Normal bowel sounds. No palpable masses. No rebound tenderness. No guarding. Negative McBurney's point. Negative psoas sign. Negative obturator sign. Skin: No petechiae or rashes Back: No midline tenderness. No CVA tenderness. Ext: No cyanosis, or edema. Neur: Awake and alert. Normal gait. Normal coordination. Psych: Normal Mood and Affect Result Diagram: 08/13/17 2300 08/13/17 2300 Results 24 hrs Laboratory Tests Test 08/13/17 22:54 08/13/17 23:00 08/13/17 23:05 Bedside Glucose 160mg/dL White Blood Count 11.110^3/ul Red Blood Count 5.1410^6/ul Hemoglobin 14.5g/dl Hematocrit 43.6% Mean Corpuscular Volume 84.8fl Mean Corpuscular Hemoglobin 28.2pg Mean Corpuscular Hemoglobin Concent 33.3g/dl Red Cell Distribution Width 11.9% Platelet Count 98734^3/UL Mean Platelet Volume 13.1fl Neutrophils % 60.8% Lymphocytes % 29.9% Monocytes % 6.9% Eosinophils % 1.4% Basophils % 0.5% Nucleated Red Blood Cells % 0.0/100WBC Neutrophils # 6.710^3/ul Lymphocytes # 3.310^3/ul Monocytes # 0.810^3/ul Eosinophils # 0.210^3/ul Basophils # 0.110^3/ul Nucleated Red Blood Cells # 0.010^3/ul Sodium Level 144mmol/L Potassium Level 3.7mmol/L Chloride Level 102mmol/L Carbon Dioxide Level 30mmol/L Anion Gap 16 Blood Urea Nitrogen 14mg/dl Creatinine 0.88mg/dl Glucose Level 163mg/dl Calcium Level 9.8mg/dl Total Bilirubin 0.4mg/dl Direct Bilirubin 0.00mg/dl Indirect Bilirubin 0.4mg/dl Aspartate Amino Transf (AST/SGOT) 23IU/L Alanine Aminotransferase (ALT/SGPT) 34IU/L Alkaline Phosphatase 87IU/L Total Protein 8.2g/dl Albumin 4.4g/dl Globulin 3.80g/dl Albumin/Globulin Ratio 1.15 Lipase 162U/L Urine Color YELLOW Urine Clarity CLEAR Urine pH 7.0 Urine Specific [place] 1.020 Urine Ketones TRACEmg/dL Urine Nitrite NEGATIVEmg/dL Urine Bilirubin NEGATIVEmg/dL Urine Urobilinogen NEGATIVEmg/dL Urine Leukocyte Esterase NEGATIVELeu/ul Urine Hemoglobin NEGATIVEmg/dL Urine Glucose 2+mg/dL Urine Total Protein NEGATIVEmg/dl Current Medications Medications (Trade) Dose Ordered Sig/Tulio Route PRN Reason Start Time Stop Time Status Last Admin Dose Admin Sodium Chloride (NS) 1,000 ml @ 1,000 mls/hr Q1H STAT IV 08/13/17 22:23 08/13/17 23:22 DC 08/13/17 23:20 Ondansetron HCl (Zofran Inj) 4 mg ONCE STAT IV 08/13/17 22:23 08/13/17 22:25 DC 08/13/17 23:15 Ketorolac Tromethamine (Toradol) 30 mg ONCE STAT IV 08/13/17 22:23 08/13/17 22:25 DC 08/13/17 23:15 Procedures/MDM 37-year-old male patient with no significant past medical history presents to the ED complaining of left flank pain and abdominal pain. Patient is afebrile and nontoxic-appearing. Patient has normal vital signs. Patient was further worked up with CBC, CMP, lipase, UA, x-ray, CT of the abdomen and pelvis without contrast. Patient's pain and symptoms have improved after treatment with 1 L of normal saline, 30 mg IV Toradol. CBC: No leukocytosis. No e/o of systemic infection. No e/o anemia. CMP: No e/o severe acidosis, alkalosis, renal failure, diabetic ketoacidosis, liver disease Lipase within normal limits. Urine: No leukocyte esterase, no nitrites, no hematuria, 2+ glucose. PROCEDURE: Portable chest x-ray. CLINICAL INDICATION: Pain with breathing. TECHNIQUE: Portable AP view of the chest. COMPARISON: 05/03/2017. FINDINGS: No pulmonary edema or conolidation is identified. The cardiac silhouette is magnified. No pleural effusion is seen. There is no pneumothorax. IMPRESSION: 1. No evidence of acute cardiopulmonary disease. PROCEDURE: CT Abdomen and pelvis without contrast. CLINICAL INDICATION: Abdominal pain. TECHNIQUE: CT scan of the abdomen and pelvis was performed on a multi- detector high-resolution CT scanner. Contiguous axial images were obtained from the lung bases to the ischial tuberosities without intravenous contrast. Coronal and sagittal reformatted images were also obtained. Images were reviewed on the PACS workstation. One or more of the following dose reduction techniques were used: - Automated exposure control. - Adjustment of the mA and/or kV according to patient size. - Use of iterative reconstruction technique. Exam CTD/vol = 12.16 mGy. Total exam DLP = 714.20 mGy-cm. COMPARISON: None. FINDINGS: Evaluation of the lung bases demonstrates no pleural or parenchymal disease. Abdomen: The liver is normal in size. There is no focal mass or dilatation of the biliary tree. The gallbladder is not distended. The spleen is normal in size and contains a complex cystic structure with peripheral calcifications measuring 2.5 x 1.6 cm. The pancreas and bilateral adrenal glands are within normal limits. Bilateral kidneys are normal in size with no contour deforming mass identified. There is no radiopaque renal or ureteral calculus identified. There is no hydronephrosis or hydroureter. There is no retroperitoneal adenopathy. The abdominal aorta is of normal caliber. There is no abnormal bowel wall thickening or distension. There is no bowel obstruction or free air. A normal appendix is identified. There is no diverticulosis or diverticulitis. There is no ascites. Pelvis: The bladder is unremarkable. The prostate and seminal vesicles are within normal limits. There is no significant pelvic adenopathy or free fluid. Evaluation of the osseous structures demonstrates no suspicious lytic or blastic lesion. IMPRESSION: Complex splenic cyst with peripheral calcifications, unchanged compared with the prior CT chest done 12/08/2016. Otherwise no acute abnormality identified within the abdomen and pelvis. Since patient reports that he had a positive H. pylori breath test, patient should follow up with his schedule hanger for further evaluation and treatment. Low suspicion for testicular torsion, gastritis, GERD, peptic ulcer disease, cholecystitis, choledocholithiasis, cholangitis, pancreatitis, appendicitis, bowel obstruction, ileus, volvulus, nephrolithiasis, pyelonephritis, hepatitis, perforated viscus, diverticulitis, abdominal hernia, acute abdomen, mesenteric ischemia or other emergent conditions. Discharge medications: Tylenol Follow up with primary care physician in 1-2 days for referral to schedule hanger. Instructed patient to return to the ED sooner for any worsening symptoms. Patient's questions were answered. Patient understood and agreed with discharge plan. Patient discharged stable. Departure Diagnosis: Primary Impression: Flank pain Additional Impression: Abdominal pain Abdominal location: unspecified location Qualified Code: R10.9 - Abdominal pain, unspecified abdominal location Condition: Stable Patient Instructions: Abdominal Pain, Flank Pain, Uncertain Cause Referrals: [facility] YOU HAVE RECEIVED A MEDICAL SCREENING EXAM AND THE RESULTS INDICATE THAT YOU DO NOT HAVE A CONDITION THAT REQUIRES URGENT TREATMENT IN THE EMERGENCY DEPARTMENT. FURTHER EVALUATION AND TREATMENT OF YOUR CONDITION CAN WAIT UNTIL YOU ARE SEEN IN YOUR DOCTORS OFFICE WITHIN THE NEXT 1-2 DAYS. IT IS YOUR RESPONSIBILITY TO MAKE AN APPOINTMENT FOR FOLOW-UP CARE. IF YOU HAVE A PRIMARY DOCTOR --you should call your primary doctor and schedule an appointment IF YOU DO NOT HAVE A PRIMARY DOCTOR YOU CAN CALL OUR PHYSICIAN REFERRAL HOTLINE AT IF YOU CAN NOT AFFORD TO SEE A PHYSICIAN YOU CAN CHOSE FROM THE FOLLOWING [facility] [address] [facility] [address] [facility] [address] [facility] [address] [facility] [address] [facility]. [facility] [address] [facility]. [facility] YOU HAVE RECEIVED A MEDICAL SCREENING EXAM AND THE RESULTS INDICATE THAT YOU DO NOT HAVE A CONDITION THAT REQUIRES URGENT TREATMENT IN THE EMERGENCY DEPARTMENT. FURTHER EVALUATION AND TREATMENT OF YOUR CONDITION CAN WAIT UNTIL YOU ARE SEEN IN YOUR DOCTORS OFFICE WITHIN THE NEXT 1-2 DAYS. IT IS YOUR RESPONSIBILITY TO MAKE AN APPOINTMENT FOR FOLOW-UP CARE. IF YOU HAVE A PRIMARY DOCTOR --you should call your primary doctor and schedule and appointment IF YOU DO NOT HAVE A PRIMARY DOCTOR YOU CAN CALL OUR PHYSICIAN REFERRAL HOTLINE AT . IF YOU CAN NOT AFFORD TO SEE A PHYSICIAN YOU CAN CHOSE FROM THE FOLLOWING [facility] INSTITUTIONS: [facility] [address] [place] [address] [facility] [address] [place] [address] LAC + [facility] [address] [place] [address] [facility] URGENT CARE/SPECIALTIES Additional Instructions: FOLLOW UP WITH YOUR PRIMARY CARE PHYSCIAN tomorrow for a referral to see a schedule hanger for further evaluation and treatment.Return to this facility if you are not improving as expected - vomitng blood, bloody diarrhea, fever, chills, etc. JOSE F REYEZ PA-C Aug 14, 2017 01:56
--- NOTE | 2017-08-14 01:56 | ERD ---
ER Documentation Chief Complaint Chief Complaint LT FLANK PAIN X2 DAYS. +CONSTIPATION HPI 37-year-old male patient with no significant past medical history presents to the ED complaining of left flank pain that started 2 days ago. Reports that it radiates to his abdomen. Patient reports that this has been intermittently going on for the last year. Reports that he has left rib pain with breathing in and out. Reports that he has had pebble like stools. States that he has followed up with a marketing strategy manager and was tested positive for H. Pylori. Denies any fever, chills, nausea, vomiting, diarrhea, neck stiffness. ROS All systems reviewed and are negative except as per history of present illness. Medications Home Meds Active Scripts Acetaminophen* (Tylophen*) 500 Mg Capsule, 1 CAP PO Q6H Y for PAIN AND OR ELEVATED TEMP, #20 CAP Prov:JOSE F REYEZ PA-C 08/14/17 Ranitidine Hcl* (Zantac*) 150 Mg Tablet, 150 MG PO BID Y for EPIGASTRIC PAIN, # 30 TAB Prov:JENNIFER,MARTHA 05/04/17 Ibuprofen* (Motrin*) 400 Mg Tab, 400 MG PO Q6, #30 TAB Prov:JENNIFER,MARTHA 05/04/17 Ibuprofen* (Motrin*) 600 Mg Tab, 600 MG PO Q6H Y for PAIN AND OR ELEVATED TEMP, #30 TAB Prov:SHANTA WEBB MD 12/09/16 Ranitidine Hcl* (Zantac*) 150 Mg Tablet, 150 MG PO BID Y for EPIGASTRIC PAIN, # 30 TAB Prov:VALERIO QUINTERO DO 12/08/16 Reported Medications Omeprazole* (Omeprazole*) 20 Mg Capsule.dr, 20 MG PO DAILY, #30 CAP 12/08/16 Lisinopril* (Lisinopril*) 10 Mg Tablet, 10 MG PO BID, #30 TAB 12/08/16 Metformin Hcl* (Metformin Hcl*) 500 Mg Tablet, 500 MG PO WITH BREAKFAST DINNE, # 30 TAB 12/08/16 Allergies Allergies: Coded Allergies: No Known Allergy (Unverified , 08/13/17) PMhx/Soc Medical and Surgical Hx: pt denies Surgical Hx Hx Cardiac Disorders: Yes (htn) Hx Miscellaneous Medical Probl: Yes (dm) Hx Alcohol Use: No Hx Substance Use: No Hx Tobacco Use: No Smoking Status: Never smoker Physical Exam Vitals Vital Signs Date Time Temp Pulse Resp B/P Pulse Ox O2 Delivery O2 Flow Rate FiO2 08/14/17 02:12 97.0 71 18 138/71 97 Room Air 08/13/17 20:35 97.9 107 20 153/88 99 Physical Exam Const: [id number], well-nourished. In no acute distress. Head: Atraumatic, normocephalic Eyes: Normal Conjunctiva without injection. No purulent discharge. ENT: Normal external ear, nose. Moist oropharynx without tonsillar exudates. Non -erythematous pharynx. Uvula midline. No drooling. No trismus. Neck: No cervical midline tenderness. Full range of motion. No meningismus. No cervical lymphadenopathy. No JVD. Resp: Clear to auscultation bilaterally. No wheezing, rhonchi, rales, or crackles. No accessory muscle use. No retractions. Cardio: Regular rate and rhythm. No murmurs, rubs or gallops. Abd: Soft, generalized tenderness to palpation, non distended. Normal bowel sounds. No palpable masses. No rebound tenderness. No guarding. Negative McBurney's point. Negative psoas sign. Negative obturator sign. Skin: No petechiae or rashes Back: No midline tenderness. No CVA tenderness. Ext: No cyanosis, or edema. Neur: Awake and alert. Normal gait. Normal coordination. Psych: Normal Mood and Affect Result Diagram: 08/13/17 2300 08/13/17 2300 Results 24 hrs Laboratory Tests Test 08/13/17 22:54 08/13/17 23:00 08/13/17 23:05 Bedside Glucose 160mg/dL White Blood Count 11.110^3/ul Red Blood Count 5.1410^6/ul Hemoglobin 14.5g/dl Hematocrit 43.6% Mean Corpuscular Volume 84.8fl Mean Corpuscular Hemoglobin 28.2pg Mean Corpuscular Hemoglobin Concent 33.3g/dl Red Cell Distribution Width 11.9% Platelet Count 30821^3/UL Mean Platelet Volume 13.1fl Neutrophils % 60.8% Lymphocytes % 29.9% Monocytes % 6.9% Eosinophils % 1.4% Basophils % 0.5% Nucleated Red Blood Cells % 0.0/100WBC Neutrophils # 6.710^3/ul Lymphocytes # 3.310^3/ul Monocytes # 0.810^3/ul Eosinophils # 0.210^3/ul Basophils # 0.110^3/ul Nucleated Red Blood Cells # 0.010^3/ul Sodium Level 144mmol/L Potassium Level 3.7mmol/L Chloride Level 102mmol/L Carbon Dioxide Level 30mmol/L Anion Gap 16 Blood Urea Nitrogen 14mg/dl Creatinine 0.88mg/dl Glucose Level 163mg/dl Calcium Level 9.8mg/dl Total Bilirubin 0.4mg/dl Direct Bilirubin 0.00mg/dl Indirect Bilirubin 0.4mg/dl Aspartate Amino Transf (AST/SGOT) 23IU/L Alanine Aminotransferase (ALT/SGPT) 34IU/L Alkaline Phosphatase 87IU/L Total Protein 8.2g/dl Albumin 4.4g/dl Globulin 3.80g/dl Albumin/Globulin Ratio 1.15 Lipase 162U/L Urine Color YELLOW Urine Clarity CLEAR Urine pH 7.0 Urine Specific [place] 1.020 Urine Ketones TRACEmg/dL Urine Nitrite NEGATIVEmg/dL Urine Bilirubin NEGATIVEmg/dL Urine Urobilinogen NEGATIVEmg/dL Urine Leukocyte Esterase NEGATIVELeu/ul Urine Hemoglobin NEGATIVEmg/dL Urine Glucose 2+mg/dL Urine Total Protein NEGATIVEmg/dl Current Medications Medications (Trade) Dose Ordered Sig/Tulio Route PRN Reason Start Time Stop Time Status Last Admin Dose Admin Sodium Chloride (NS) 1,000 ml @ 1,000 mls/hr Q1H STAT IV 08/13/17 22:23 08/13/17 23:22 DC 08/13/17 23:20 Ondansetron HCl (Zofran Inj) 4 mg ONCE STAT IV 08/13/17 22:23 08/13/17 22:25 DC 08/13/17 23:15 Ketorolac Tromethamine (Toradol) 30 mg ONCE STAT IV 08/13/17 22:23 08/13/17 22:25 DC 08/13/17 23:15 Procedures/MDM 37-year-old male patient with no significant past medical history presents to the ED complaining of left flank pain and abdominal pain. Patient is afebrile and nontoxic-appearing. Patient has normal vital signs. Patient was further worked up with CBC, CMP, lipase, UA, x-ray, CT of the abdomen and pelvis without contrast. Patient's pain and symptoms have improved after treatment with 1 L of normal saline, 30 mg IV Toradol. CBC: No leukocytosis. No e/o of systemic infection. No e/o anemia. CMP: No e/o severe acidosis, alkalosis, renal failure, diabetic ketoacidosis, liver disease Lipase within normal limits. Urine: No leukocyte esterase, no nitrites, no hematuria, 2+ glucose. PROCEDURE: Portable chest x-ray. CLINICAL INDICATION: Pain with breathing. TECHNIQUE: Portable AP view of the chest. COMPARISON: 05/03/2017. FINDINGS: No pulmonary edema or conolidation is identified. The cardiac silhouette is magnified. No pleural effusion is seen. There is no pneumothorax. IMPRESSION: 1. No evidence of acute cardiopulmonary disease. PROCEDURE: CT Abdomen and pelvis without contrast. CLINICAL INDICATION: Abdominal pain. TECHNIQUE: CT scan of the abdomen and pelvis was performed on a multi- detector high-resolution CT scanner. Contiguous axial images were obtained from the lung bases to the ischial tuberosities without intravenous contrast. Coronal and sagittal reformatted images were also obtained. Images were reviewed on the PACS workstation. One or more of the following dose reduction techniques were used: - Automated exposure control. - Adjustment of the mA and/or kV according to patient size. - Use of iterative reconstruction technique. Exam CTD/vol = 12.16 mGy. Total exam DLP = 714.20 mGy-cm. COMPARISON: None. FINDINGS: Evaluation of the lung bases demonstrates no pleural or parenchymal disease. Abdomen: The liver is normal in size. There is no focal mass or dilatation of the biliary tree. The gallbladder is not distended. The spleen is normal in size and contains a complex cystic structure with peripheral calcifications measuring 2.5 x 1.6 cm. The pancreas and bilateral adrenal glands are within normal limits. Bilateral kidneys are normal in size with no contour deforming mass identified. There is no radiopaque renal or ureteral calculus identified. There is no hydronephrosis or hydroureter. There is no retroperitoneal adenopathy. The abdominal aorta is of normal caliber. There is no abnormal bowel wall thickening or distension. There is no bowel obstruction or free air. A normal appendix is identified. There is no diverticulosis or diverticulitis. There is no ascites. Pelvis: The bladder is unremarkable. The prostate and seminal vesicles are within normal limits. There is no significant pelvic adenopathy or free fluid. Evaluation of the osseous structures demonstrates no suspicious lytic or blastic lesion. IMPRESSION: Complex splenic cyst with peripheral calcifications, unchanged compared with the prior CT chest done 12/08/2016. Otherwise no acute abnormality identified within the abdomen and pelvis. Since patient reports that he had a positive H. pylori breath test, patient should follow up with his marketing strategy manager for further evaluation and treatment. Low suspicion for testicular torsion, gastritis, GERD, peptic ulcer disease, cholecystitis, choledocholithiasis, cholangitis, pancreatitis, appendicitis, bowel obstruction, ileus, volvulus, nephrolithiasis, pyelonephritis, hepatitis, perforated viscus, diverticulitis, abdominal hernia, acute abdomen, mesenteric ischemia or other emergent conditions. Discharge medications: Tylenol Follow up with primary care physician in 1-2 days for referral to marketing strategy manager. Instructed patient to return to the ED sooner for any worsening symptoms. Patient's questions were answered. Patient understood and agreed with discharge plan. Patient discharged stable. Departure Diagnosis: Primary Impression: Flank pain Additional Impression: Abdominal pain Abdominal location: unspecified location Qualified Code: R10.9 - Abdominal pain, unspecified abdominal location Condition: Stable Patient Instructions: Abdominal Pain, Flank Pain, Uncertain Cause Referrals: [facility] YOU HAVE RECEIVED A MEDICAL SCREENING EXAM AND THE RESULTS INDICATE THAT YOU DO NOT HAVE A CONDITION THAT REQUIRES URGENT TREATMENT IN THE EMERGENCY DEPARTMENT. FURTHER EVALUATION AND TREATMENT OF YOUR CONDITION CAN WAIT UNTIL YOU ARE SEEN IN YOUR DOCTORS OFFICE WITHIN THE NEXT 1-2 DAYS. IT IS YOUR RESPONSIBILITY TO MAKE AN APPOINTMENT FOR FOLOW-UP CARE. IF YOU HAVE A PRIMARY DOCTOR --you should call your primary doctor and schedule an appointment IF YOU DO NOT HAVE A PRIMARY DOCTOR YOU CAN CALL OUR PHYSICIAN REFERRAL HOTLINE AT IF YOU CAN NOT AFFORD TO SEE A PHYSICIAN YOU CAN CHOSE FROM THE FOLLOWING [facility] [address] [facility] [address] [facility] [address] [facility] [address] [facility] [address] [facility]. [facility] [address] [facility]. [facility] YOU HAVE RECEIVED A MEDICAL SCREENING EXAM AND THE RESULTS INDICATE THAT YOU DO NOT HAVE A CONDITION THAT REQUIRES URGENT TREATMENT IN THE EMERGENCY DEPARTMENT. FURTHER EVALUATION AND TREATMENT OF YOUR CONDITION CAN WAIT UNTIL YOU ARE SEEN IN YOUR DOCTORS OFFICE WITHIN THE NEXT 1-2 DAYS. IT IS YOUR RESPONSIBILITY TO MAKE AN APPOINTMENT FOR FOLOW-UP CARE. IF YOU HAVE A PRIMARY DOCTOR --you should call your primary doctor and schedule and appointment IF YOU DO NOT HAVE A PRIMARY DOCTOR YOU CAN CALL OUR PHYSICIAN REFERRAL HOTLINE AT . IF YOU CAN NOT AFFORD TO SEE A PHYSICIAN YOU CAN CHOSE FROM THE FOLLOWING [facility] INSTITUTIONS: [facility] [address] [place] [address] [facility] [address] [place] [address] LAC + [facility] [address] [place] [address] [facility] URGENT CARE/SPECIALTIES Additional Instructions: FOLLOW UP WITH YOUR PRIMARY CARE PHYSCIAN tomorrow for a referral to see a marketing strategy manager for further evaluation and treatment.Return to this facility if you are not improving as expected - vomitng blood, bloody diarrhea, fever, chills, etc. JOSE F REYEZ PA-C Aug 14, 2017 01:56
[2017-08-14 02:12] VITALS: BP 138/71; PULSE 71; RESP 18; TEMP 97
[2017-08-21] MEDS ORDERED: FAMO40TA52 PO (18:18)
[2017-08-21] MEDS ORDERED: OXYC-279 PO (18:18)
== END 2017-08-14 02:13 | disposition home or self-care (01) ==
LOC: FTE 20:22
DX: R10.84 Generalized abdominal pain (principal); E11.9 Type 2 diabetes mellitus without complications; I10 Essential (primary) hypertension; Z79.84 Long term (current) use of oral hypoglycemic drugs
CPT/HCPCS: 36415; 71010; 74176; 80053; 81003; 82962; 83690; 85025; 87086; 96374; 96375; J1885; J2405; J7030; Z7502

== ENCOUNTER 2017-08-21 15:57 | Emergency (ER) | END 2017-08-21 18:25 | disposition home or self-care (01) | DX: R07.9 Chest pain, unspecified (principal); K29.00 Acute gastritis without bleeding; I10 Essential (primary) hypertension; E11.65 Type 2 diabetes mellitus with hyperglycemia; Z79.84 Long term (current) use of oral hypoglycemic drugs | CPT/HCPCS: 36415; 71010; 80053; 82962; 83690; 84484; 85025; 93005; 96372; 96374; J1815; J1885; J7030; Z7502; Z7610 ==